=== PATIENT | female | born 1970 | race Caucasian/White ===

== ENCOUNTER 2016-09-09 11:11 | Day surgery (SDC) | payer MEDICAID ==
[~2016-09-09 11:11] MED LIST: Lactated Ringers 1,000 ML IV SCH; ceFAZolin 2 GM in Premix Bag 1 BAG IV ONE
[2016-09-09] MEDS ORDERED: Lidocaine 1% 20 ML MDV ONE (12:09)
[2016-09-09] MEDS ORDERED: Bupivacaine 0.5% 10 ML SDV ONE (12:09)
[2016-09-09] MEDS ORDERED: Lidocaine 2% 5 ML SDV ONE (12:45)
[2016-09-09] MEDS ORDERED: fentaNYL 250 MCG/5 ML SDV ONE (12:45)
[2016-09-09] MEDS ORDERED: Midazolam 1 MG/ML 2 ML SDV ONE (12:45)
[2016-09-09] MEDS ORDERED: Propofol 200 MG/20 ML SDV ONE (12:45)
--- NOTE | 2016-09-09 12:49 | PCM.PREANE ---
Preanesthetic Assessment - Anesthesia/Transfusion/Family Hx Anesthesia History: Prior Anesthesia Without Reaction Other Type of Anesthesia Reaction Comment: Denies any known problems in the past , no known family history of problems Family History of Anesthesia Reaction: No Transfusion History: No Prior Transfusion(s) - Review of Systems General: No Symptoms Pulmonary: No Symptoms Cardiovascular: No Symptoms Gastrointestinal: No symptoms Neurological: No Symptoms Other: Reports: None - Physical Assessment NPO Status Date: 09/08/16 Height: 1.7 m Weight: 106.594 kg ASA Class: 2 Mental Status: Alert & Oriented x3 Airway Class: Mallampati = 2 Dentition: Reports: Normal Dentition ROM/Head Extension: Full Lungs: Clear to auscultation, Normal respiratory effort Cardiovascular: Regular Rate, Regular Rhythm - Lab Values: Laboratory Last Values Urine HCG, Qual NEGATIVE (NEGATIVE) 09/09/16 11:17 - Allergies Allergies/Adverse Reactions: Allergies Allergy/AdvReac Type Severity Reaction Status Date / Time No Known Allergies Allergy Verified 09/07/16 11:27 - Blood Blood Available: No - Anesthesia Plan Pre-Op Medication Ordered: None - Acknowledgements Anesthesia Type Planned: General Anesthesia Pt an Appropriate Candidate for the Planned Anesthesia: Yes Alternatives and Risks of Anesthesia Discussed w Pt/Guardian: Yes Pt/Guardian Understands and Agrees with Anesthesia Plan: Yes PreAnesthesia Questionnaire - Past Health History Medical/Surgical History: Denies Medical/Surgical History [employer] History: Reports: Musculoskeletal History: Reports: Arthritis Psychiatric History: Reports: Anxiety, Depression Endocrine/Metabolic History: Reports: Obesity/BMI 30+ - Past Surgical History Head Surgeries/Procedures: Reports: None Female Surgical History: Reports: section, Tubal ligation Musculoskeletal Surgical History: Reports: Other (see below) Other Musculoskeletal Surgeries/Procedures:: hx rt foot surgery - SUBSTANCE USE Smoking Status *Q: Current Every Day Smoker Tobacco Use Within Last Twelve Months: Cigarettes Second Hand Smoke Exposure: Yes Days Per Week of Alcohol Use: 0 Number of Drinks Per Day: 0 Total Drinks Per Week: 0 Recreational Drug Use History: No - HOME MEDS Home Medications: Home Meds Aspirin [Low Dose Aspirin EC] 1 tab PO DAILY 09/07/16 [History] Calcium Carb & Citrate/Vit D3 [Calcium + D3 ER Tablet] 1 tab PO DAILY 09/07/16 [ History] Vit D3 & K/Berberine HCl/Hops [Ostera] 5,000 units PO DAILY 09/07/16 [History] - CURRENT (IN HOUSE) MEDS Current Meds: Current Medications Lactated Ringer's (Ringers, Lactated) 1,000 mls @ 125 mls/hr IV ASDIRECTED MAN Discontinued Medications Bupivacaine HCl (Sensorcaine-Mpf 0.5%) Confirm Administered Dose 20 ml .ROUTE .STK-MED ONE Stop: 09/09/16 12:10 Cefazolin Sodium/Dextrose 2 gm (/ Premix) 50 mls @ 100 mls/hr IV ONETIME ONE Stop: 09/09/16 11:00 Lidocaine HCl (Xylocaine 1%) Confirm Administered Dose 20 ml .ROUTE .STK-MED ONE Stop: 09/09/16 12:10 Preanesthetic Assessment - ANESTHESIA/TRANSFUSION/FAMILY HX Anesthesia/Transfusion History: No Prior Transfusion(s), Prior Anesthesia (C- section, TL, EGD, foot wart: no anesthesia issues noted) Other Type of Anesthesia Reaction Comment: Denies any known problems in the past , no known family history of problems Family History of Anesthesia Reaction: No Other Intubation History Comment: no known problems - PHYSICAL ASSESSMENT Height: 1.7 m Weight: 106.594 kg - LAB Values: Laboratory Last Values Urine HCG, Qual NEGATIVE (NEGATIVE) 09/09/16 11:17 - ALLERGIES Allergies/Adverse Reactions: Allergies Allergy/AdvReac Type Severity Reaction Status Date / Time No Known Allergies Allergy Verified 09/07/16 11:27
[2016-09-09] MEDS ORDERED: Ketorolac 30 MG/ML SDV ONE (13:13)
[2016-09-09] MEDS ORDERED: Ondansetron 4 MG/2 ML SDV ONE (13:13)
[2016-09-09] MEDS ORDERED: HYDROmorphone 2 MG/ML Syringe ONE (13:13)
[2016-09-09] MEDS ORDERED: fentaNYL 100 MCG/2 ML SDV IVPUSH PRN ×2 (13:56→14:31)
--- NOTE | 2016-09-09 14:38 | PCM.OPNOTE ---
- General Post-Op/Procedure Note Date of Surgery/Procedure: 09/09/16 Operative Procedure(s): excision of plantar warts right foot Findings: consistent with diagnosis Pre Op Diagnosis: plantar warts right foot Post-Op Diagnosis: plantar warts right foot Anesthesia Technique: General LMA Primary Surgeon: Matias Hewitt Anesthesia Provider: Maciel Castillo Pathology: excised wart material with skin and subcutaneous tissue right foot EBL in mLs: 3 Complications: none Condition: Good Free Text/Narrative:: materials: 4-0 vicryl, 3-0 prolene injectables: 10 ml 0.5% marcaine plain
--- NOTE | 2016-09-09 15:01 | PCM.POSTAN ---
POST ANESTHESIA ASSESSMENT - MENTAL STATUS Mental Status: alert, oriented - RESPIRATORY Respiratory Status: respiratory rate WNL, airway patent, O2 saturation stable - CARDIOVASCULAR CV Status: pulse rate WNL, blood pressure stable - GASTROINTESTINAL GI Status: no symptoms - POST OP HYDRATION Hydration Status: adequate & stable
--- NOTE | 2016-09-09 15:11 | PCM.POSTAN ---
POST ANESTHESIA ASSESSMENT - MENTAL STATUS Mental Status: alert, oriented - VITAL SIGNS Pulse Rate: 79 SaO2: 94 Resp Rate: 13 Blood Pressure: 100/53 - RESPIRATORY Respiratory Status: respiratory rate WNL, airway patent, O2 saturation stable, supplemental oxygen Free Text/Narrative:: oxygen saturation mid 90s when awake and talking but 90-91 when resting supplemental nasal oxygen for phase 2 - CARDIOVASCULAR CV Status: pulse rate WNL, blood pressure stable - GASTROINTESTINAL GI Status: no symptoms - PAIN Pain Score: 0 - POST OP HYDRATION Hydration Status: adequate & stable
--- NOTE | 2016-09-09 15:20 | PN ---
Preoperative Progress Note The patient is a 46-year-old female. The patient is here today with a preoperative diagnosis of plantar warts on the left and right foot pain. She initially had been scheduled and consented for surgical excision of the left foot plantar wart; however, today she states that the right foot plantar warts are causing her significantly more pain and so the consent has been redone and the patient is consented for a planned procedure of excision of plantar warts, right foot. The preoperative diagnosis is plantar warts of the right foot as well. The patient has no allergies. She has been cleared for surgery by Dr. Braswell with no contraindications noted to surgery. She has following results from her preoperative history and physical exam, her complete blood count was all within normal values as well as her basic metabolic panel, as well as PT, INR, and PTT. Her urinalysis showed that at the time of the history and physical exam which was August 10, 2016 did show trace results of white blood cells in her urine and she has since been treated with antibiotics and resolved her urinary tract infection. I spoke with Dr. Braswell regarding this and confirmed that she is now clear of infection and ready to proceed with surgery. Chest x-ray showed no acute process. An EKG was showing sinus rhythm. The patient presents today for surgical excision of right foot plantar warts. No guarantees expressed or implied. The patient is being given a prescription for analgesic care and has been provided with my cell phone number, should she need it with any issues. She will be following up in my office next week. RAMA MCFARLANE /[id number]
[2016-09-09] MEDS: Acetaminophen/oxyCODONE 325-5 MG Tab PO PRN (15:56)
[2016-09-09 17:01] VITALS: BP 135/74
--- NOTE | 2016-09-09 17:01 | PCM48HPAN ---
Post Anesthesia Note - EVALUATION WITHIN 48HRS OF ANESTHETIC Vital Signs in Normal Range: Yes Patient Participated in Evaluation: Yes Respiratory Function Stable: Yes Airway Patent: Yes Cardiovascular Function Stable: Yes Hydration Status Stable: Yes Pain Control Satisfactory: Yes Nausea and Vomiting Control Satisfactory: Yes Mental Status Recovered: Yes
--- NOTE | 2016-09-09 23:21 | OR ---
SURGEON: Matias Hewitt DPM DATE OF PROCEDURE: 09/09/2016 PREOPERATIVE DIAGNOSIS: Plantar warts, right foot. POSTOPERATIVE DIAGNOSIS: Plantar warts, right foot. PROCEDURE: Excision of plantar warts, right foot. ANESTHESIA: General. HEMOSTASIS: Above ankle pneumatic tourniquet inflated to a pressure of 250 mmHg after an Esmarch bandage exsanguination. ESTIMATED BLOOD LOSS: 3 mL. MATERIALS: 4-0 Vicryl, 3-0 Prolene suture. INJECTABLES: 10 mL of 0.5% Marcaine plain. PATHOLOGY: Mass of tissue and excised warts were sent to pathology for gross and histologic examination. CONDITION: Patient tolerated the procedure and anesthesia well without any complications noted or reported. JUSTIFICATION FOR PROCEDURE: Mrs. Balderas is a 46-year-old female, who presents to the [facility] sameday surgery [place] operating room for excision of a cluster of plantar warts on the right foot. Patient has stated repeatedly that she has had the warts on the right foot almost her entire life and over 40 years. She also has a large wart on the left foot which originally we had planned to excise today; however, the patient is in greater pain on the right foot and insists that her right foot be done 1st. The plan which was to do the left foot today and after she heals, to bring her back for the right foot that is now being reversed and we were doing the right foot today. Patient is consented properly for right foot excision of plantar warts. Patient was told of the benefits as well as possible side effects of the surgery with the patient consenting for surgical correction by excising the plantar warts. Consent form was reviewed with the patient and all questions answered. No guarantees expressed or implied. The patient signed the patient consent form with a witness present that was placed in the patient's chart. The patient was identified as Ms. Balderas, was brought to the operating room, placed on the operating table in a supine position. At which time, an aseptic scrub and drape was performed about the patient's right lower extremity and the pneumatic tourniquet was applied but not inflated prior to the beginning of the procedure. The procedure then commenced. PROCEDURE IN DETAIL: Excision of plantar wart right foot: Attention was directed to the plantar aspect of the patient's right plantar lateral midfoot where the two large warts with a thick hyperkeratotic layer were identified and a marking pen was used to plan an elliptical incision to completely excise both identified warts areas. This was followed by an Esmarch bandage exsanguination of the right lower extremity and inflation of the right ankle tourniquet above ankle tourniquet to a pressure of 250 mmHg. Using a 15 blade mounted on a #3 blade handle and a 1 to product picker. The elliptical incision was performed completely encompassing the warts in question and a full-thickness cut was made with care being taken to avoid any neurovascular structures. The incision was deepened with undermining of the subcutaneous tissue surrounding the warts and at its deepest incision protruded to the deep tissue, but did not reach the level of tendon. The planned excision was completed and the single piece of skin and subcutaneous and deep tissue that encompassed the plantar warts as well as the warts themselves were removed in one piece and placed in toto in a sterile specimen container and sent to pathology for gross and histologic examination. The exposed area of the foot was then irrigated with copious amounts of normal sterile saline and inspected for any further evidence of wart material and none was found and the excision was judged to be adequate and at this point, using a combination of a #15 and #11 blade, a very thin amount of peripheral skin was then removed in order to allow for optimal closure of the wound. The deeper subcutaneous tissue was reapproximated using 4-0 Vicryl suture and then closely spaced sutures were used with 3-0 Prolene suture to reapproximate the superficial skin. The area was then injected with 10 mL of 0.5% Marcaine plain, covered with Betadine- soaked Xeroform gauze 4 x 4, fluff gauze, Kerlix roll, and Bro bandage. The pneumatic tourniquet was deflated at a time of 33 minutes. Prompt hyperemic response was noted to all digits of the right foot. The patient was then transferred from the operating room to the recovery room having tolerated the procedure and anesthesia well with all vital signs stable. After brief stay in recovery room, the patient is to be discharged home with prescription for adequate analgesic care. In addition, written instructions have been provided regarding wound care, strict nonweightbearing to the right lower extremity, use of crutches, orders to keep the bandages clean, dry, and intact and to follow up with me in my office either on Monday or Monday of next week. Patient also has been provided with my cell phone number in the event that any concerns arise before then. RAMA MCFARLANE /[id number]
== END 2016-09-09 15:50 | disposition home or self-care (01) ==
LOC: MW.SDS 11:11
PROVIDERS: ATTEND Podiatrist Foot & Ankle Surgery
DX: B07.0 Plantar wart (principal); F32.9 Major depressive disorder, single episode, unspecified; F41.9 Anxiety disorder, unspecified; E66.9 Obesity, unspecified; Z98.890 Other specified postprocedural states; Z98.51 Tubal ligation status; Z79.82 Long term (current) use of aspirin; Z79.899 Other long term (current) drug therapy; Z68.30 Body mass index [BMI] 30.0-30.9, adult; F17.210 Nicotine dependence, cigarettes, uncomplicated
CPT/HCPCS: 11426; 12041; 81025; 88305; A9270; J1170; J1885; J2250; J2405; J3010; 00400; J2704

== ENCOUNTER 2016-10-26 09:52 | Day surgery (SDC) | payer MEDICAID ==
[~2016-10-26 09:52] MED LIST changes: -ceFAZolin 2 GM in Premix Bag 1 BAG IV ONE
[2016-10-26] MEDS ORDERED: ceFAZolin 2 GM in Premix Bag 1 BAG IV ONE (10:40)
[2016-10-26] MEDS ORDERED: ceFAZolin 1 GM Vial ONE (11:41)
[2016-10-26] MEDS ORDERED: Lidocaine 1% 20 ML MDV ONE (11:41)
[2016-10-26] MEDS ORDERED: Bupivacaine 0.5% 10 ML SDV ONE (11:41)
--- NOTE | 2016-10-26 11:51 | PCM.PREANE ---
Preanesthetic Assessment - Anesthesia/Transfusion/Family Hx Anesthesia History: Prior Anesthesia Without Reaction Other Type of Anesthesia Reaction Comment: Denies any known problems in the past , no known family history of problems Family History of Anesthesia Reaction: No Transfusion History: No Prior Transfusion(s) Intubation History: Unknown - Review of Systems General: No Symptoms Pulmonary: No Symptoms Cardiovascular: No Symptoms Gastrointestinal: No symptoms Neurological: No Symptoms Other: Reports: None - Physical Assessment Height: 1.7 m Weight: 105.687 kg ASA Class: 5E Emergency Airway Class: Mallampati = 2 Dentition: Reports: Normal Dentition Thyro-Mental Finger Breadths: 3 Mouth Opening Finger Breadths: 3 ROM/Head Extension: Full Lungs: Clear to auscultation, Normal respiratory effort Cardiovascular: Regular Rate, Regular Rhythm - Lab Values: Laboratory Last Values Urine HCG, Qual NEGATIVE (NEGATIVE) 10/26/16 09:58 - Allergies Allergies/Adverse Reactions: Allergies Allergy/AdvReac Type Severity Reaction Status Date / Time No Known Allergies Allergy Verified 09/07/16 11:27 - Blood Blood Available: No - Anesthesia Plan Pre-Op Medication Ordered: None - Acknowledgements Anesthesia Type Planned: MAC Pt an Appropriate Candidate for the Planned Anesthesia: Yes Alternatives and Risks of Anesthesia Discussed w Pt/Guardian: Yes Pt/Guardian Understands and Agrees with Anesthesia Plan: Yes PreAnesthesia Questionnaire - Past Health History Medical/Surgical History: Denies Medical/Surgical History Genitourinary History: Reports: None [employer]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: Musculoskeletal History: Reports: Arthritis Psychiatric History: Reports: Anxiety, Depression Endocrine/Metabolic History: Reports: Obesity/BMI 30+ - Past Surgical History Head Surgeries/Procedures: Reports: None Female Surgical History: Reports: section, Tubal ligation Musculoskeletal Surgical History: Reports: Other (see below) Other Musculoskeletal Surgeries/Procedures:: hx plantar warts removed from rt foot, a little over a month ago - SUBSTANCE USE Smoking Status *Q: Former Smoker Tobacco Use Within Last Twelve Months: Cigarettes Second Hand Smoke Exposure: Yes Days Per Week of Alcohol Use: 0 Number of Drinks Per Day: 0 Total Drinks Per Week: 0 Recreational Drug Use History: No - HOME MEDS Home Medications: Home Meds Aspirin [Low Dose Aspirin EC] 1 tab PO ASDIRECTED 09/07/16 [History] Calcium Carb & Citrate/Vit D3 [Calcium + D3 ER Tablet] 1 tab PO DAILY 09/07/16 [ History] Vit D3 & K/Berberine HCl/Hops [Ostera] 5,000 units PO DAILY 09/07/16 [History] buPROPion [Wellbutrin XL] 150 mg PO DAILY 10/21/16 [History] - CURRENT (IN HOUSE) MEDS Current Meds: Current Medications Lactated Ringer's (Ringers, Lactated) 1,000 mls @ 125 mls/hr IV ASDIRECTED MAN Last Admin: 10/26/16 11:18 Dose: 125 mls/hr Discontinued Medications Bupivacaine HCl (Sensorcaine-Mpf 0.5%) Confirm Administered Dose 20 ml .ROUTE .STK-MED ONE Stop: 10/26/16 11:42 Cefazolin Sodium (Ancef) Confirm Administered Dose 1 gm .ROUTE .STK-MED ONE Stop: 10/26/16 11:42 Cefazolin Sodium/Dextrose 2 gm (/ Premix) 50 mls @ 100 mls/hr IV ONETIME ONE Stop: 10/26/16 11:09 Lidocaine HCl (Xylocaine 1%) Confirm Administered Dose 20 ml .ROUTE .STK-MED ONE Stop: 10/26/16 11:42
[2016-10-26] MEDS ORDERED: fentaNYL 100 MCG/2 ML SDV IVPUSH PRN (13:27)
[2016-10-26] MEDS ORDERED: Ketorolac 30 MG/ML SDV ONE (13:45)
[2016-10-26] MEDS ORDERED: Ondansetron 4 MG/2 ML SDV ONE (13:45)
[2016-10-26] MEDS ORDERED: Acetaminophen/HYDROcodone 325-10 MG Tab PO PRN (14:16)
--- NOTE | 2016-10-26 14:23 | PCM.OPNOTE ---
- General Post-Op/Procedure Note Date of Surgery/Procedure: 10/26/16 Operative Procedure(s): excision of plantar wart left foot Findings: consistent with diagnosis Pre Op Diagnosis: plantar wart left foot Post-Op Diagnosis: plantar wart left foot Anesthesia Technique: General LMA, Local Other Anesthesia Type: 8 cc 1:1 mixture of 1% lidocaine plain and 0.5% marcaine plain Primary Surgeon: Matias Hewitt Pathology: excised left plantar wart EBL in mLs: 3 Condition: Good Free Text/Narrative:: materials: 2-0 prolene and 3-0 prolene injectables: 5 ml 0.5% marcaine plain
--- NOTE | 2016-10-26 14:32 | PN ---
Preoperative Progress Note PREOPERATIVE DIAGNOSIS: Plantar warts, left foot. POSTOPERATIVE DIAGNOSIS: Plantar warts, left foot. PLANNED PROCEDURE: Excision of plantar warts, left foot. CONSENT: Signed and in the chart. ANESTHESIA: LMA with a preoperative local block consisting of a mixture of 1% lidocaine plain and 0.5% Marcaine plain in a 50 50 ratio. The patient confirms n.p.o. since midnight. History and physical was completed by Dr. Braswell with no contraindications to surgery. PAST MEDICAL HISTORY: Significant for no allergies. CURRENT MEDICATIONS: Vira aspirin p.o. daily, calcium vitamin D p.o. daily, vitamin D3 5000 international units oral capsule one capsule p.o. daily, Wellbutrin XL 150 mg extended release one tab daily. MEDICAL CONDITIONS: The patient is an everyday smoker, who has avoided smoking over the last week in preparation for surgery. Mood disorder. Prior excision of plantar wart from the right foot. Denies alcohol use. Denies substance abuse. LABORATORY DATA: The EKG was done prior to the last surgery on August 10, 2016 showed sinus rhythm. The chest x-ray was performed on August 10 as well and that was unremarkable. Labs are as follows from October 07, white blood cell 8.16, red blood cell 4.45, hemoglobin 14.7, hematocrit 42.6, platelets 275. From August 10, 2016, PT was 9.4, INR 0.9, and PTT 23 seconds. The labs continue from October 07, 2016, glucose 89, calcium 8.8, BUN 14, creatinine 0.96. Sodium 142, potassium 4.0, chloride 106, CO2 of 25. Urinalysis was unremarkable. The patient presents for excision of plantar wart on left foot surgery today. No contraindications to surgery noted. No guarantees given or implied. The patient is healing well from her excision of plantar wart on the right foot approximately 1 to 1-1/2 months ago. RAMA / DENYS /[id number] MTDD
[2016-10-26 15:27] VITALS: BP 132/78
--- NOTE | 2016-10-27 02:05 | OR ---
SURGEON: Matias Hewitt DPM DATE OF PROCEDURE: 10/26/2016 PREOPERATIVE DIAGNOSIS: Plantar warts, left foot. POSTOPERATIVE DIAGNOSIS: Plantar warts, left foot. PROCEDURE: Excision of plantar wart, left foot. ANESTHESIA: General with LMA and a local block consisting of 8 mL of a one-to-one mixture of 0.5% Marcaine plain and 1% lidocaine plain. HEMOSTASIS: An above ankle pneumatic tourniquet inflated to a pressure of 250 mmHg after an Esmarch bandage exsanguination . ESTIMATED BLOOD LOSS: 3 mL. MATERIALS: 3-0 Prolene and 2-0 Prolene. INJECTABLES: 5 mL of 0.5% Marcaine plain. PATHOLOGY: The skin and soft tissue, containing the excised wart was sent to pathology for gross and histologic examination. Condition. The patient tolerated the procedure and the anesthesia well with no complications noted or recorded. COMPLICATIONS: None. JUSTIFICATION FOR PROCEDURE: The patient is a 46-year-old female, who [facility] for excision of a large plantar wart or warts on the left foot. The patient underwent a similar procedure approximately 1.5 months ago and had an excellent outcome and has elected to undergo the procedure on the left foot where she has what appears to be a larger wart area, but essentially on the same plantar lateral midfoot area, actually on the plantar foot, but the lateral side of the plantar foot. Unlike the wart on the right foot, which she stated she had for over 40 years, this wart was apparently only arisen within the last year or two and conservative treatments have failed to address this wart as they did the wart on the right foot. Patient presents for surgical correction today and confirms n.p.o. since midnight and has been presented and signed the consent form for excision of the of plantar wart on the left foot. The patient was told the benefits as well as possible side effects of surgery prior to consent. No guarantees expressed or implied. All the patient's questions were answered. Patient identified as Ms. Balderas and was brought to the operating room, placed on the operating table in a supine position. At which time, an aseptic scrub and drape was performed about the patient's left lower extremity. The incision site was then planned and following that, planned with a marking pen, the left lower extremity was exsanguinated with an Esmarch bandage and the pneumatic tourniquet fixed about the left ankle was inflated to a pressure of 250 mmHg and the procedure commenced. PROCEDURE IN DETAIL: Excision of plantar wart, left foot. Attention was directed to the plantar aspect of the patient's left foot and the wart on the lateral side of the plantar foot in the midfoot area was excised by following the previously marked route with a marking pen and at this time the wart was excised with sharp incision using a 15 blade and undermining the wart as necessary. This was done with an elliptical incision to allow closure, as the wart was approximately 1.5 cm in diameter. The skin and soft tissue, containing the wart was excised in toto. With care being taken to avoid any neurovascular structures and was removed and placed in a sterile specimen container and sent to pathology for gross and histologic examination. The area was then reinspected, a small amount of tissue that may have been associated with the wart was then debrided sharply and removed as well from the area. The entire area was then re-examined and flushed with copious amounts of normal sterile saline in preparation for closure. The remaining skin surrounding the excision site was then undermined in all directions to allow the skin to sustain the significantly increased amount of tension necessary to achieve closure and the widest part, which was the middle of the incision was then reapproximated using 2-0 Prolene suture for the skin. Due to the nature of the excision, deeper suturing was avoided in this case and once the initial suturing was completed using 2-0 Prolene suture for the mid section area, 3-0 Prolene suture was utilized to close the rest of the incision, also a #11 blade was used to excise a very thin amount of peripheral skin at the edges of the excision site in both proximal and distal locations to allow for optimal closure of the site. Following closure, the site was injected with 5 mL of 0.5% Marcaine plain, it was then covered with Betadine - soaked Xeroform gauze followed by 4 x 4, fluff gauze, Kerlix roll, and Bro bandage. The pneumatic tourniquet was deflated at a time of 38 or 39 minutes and there was a prompt hyperemic response noted to all digits of the left foot. The patient was then transferred from the operating room to recovery room having tolerated the procedure and the anesthesia well with all vital signs stable. After brief stay in recovery room, patient is to be discharged home with prescription for adequate analgesic care. In addition, patient will be provided with written and verbal instructions, and has been told that the instructions are identical to her prior surgery. It was addressed the need to keep the dressings clean, dry, and intact. Strict nonweightbearing to the left lower extremity. Use of crutches which the patient has from the prior case and contact information in order to follow up with me in my office on Monday next week. The patient has been provided with my cell phone number in the event of any concerns arise at any time. RAMA MCFARLANE /[id number] MTDD
== END 2016-10-26 15:21 | disposition home or self-care (01) ==
LOC: MW.SDS 09:52
PROVIDERS: ATTEND Podiatrist Foot & Ankle Surgery
PROC: 0HBNXZZ Excision of Left Foot Skin, External Approach (ICD-10-PCS; principal; 2016-10-26)
DX: B07.0 Plantar wart (principal); M19.90 Unspecified osteoarthritis, unspecified site; F32.9 Major depressive disorder, single episode, unspecified; E66.9 Obesity, unspecified; Z87.891 Personal history of nicotine dependence; Z79.82 Long term (current) use of aspirin; Z79.899 Other long term (current) drug therapy; Z98.51 Tubal ligation status; Z98.890 Other specified postprocedural states; Z68.37 Body mass index [BMI] 37.0-37.9, adult
CPT/HCPCS: 11422; 12041; 81025; J1885; J2405; J7120; 00400; 88305; J0690

== ENCOUNTER 2017-07-10 11:51 | Emergency (ER) | payer MEDICAID, OTHER ==
--- NOTE | 2017-07-10 12:38 | EDM.PDOC ---
ED HPI GENERAL MEDICAL PROBLEM - General Chief Complaint: Upper Extremity Injury/Pain Stated Complaint: PAIN IN BOTH HANDS WORK RELATED Time Seen by Provider: 07/10/17 12:30 Source of Information: Reports: Patient History Limitations: Reports: No Limitations - History of Present Illness INITIAL COMMENTS - FREE TEXT/NARRATIVE: HISTORY AND PHYSICAL: History of present illness: [Patient comes to the emergency room complaining of pain to her fingers on both hands. States that she suffered frostbite on June 25 as she was working outside in extreme cold temperatures. She has continued to experience pain to all of her fingers except thumbs since this occurred. She admits to smoking regularly for all of her adult life. She has not taken any medications for her symptoms. Denies numbness and tingling. No other injuries. PCP is Dr. Braswell.] Review of systems: As per history of present illness and below otherwise all systems reviewed and negative. Past medical history: As per history of present illness and as reviewed below otherwise noncontributory. Surgical history: As per history of present illness and as reviewed below otherwise noncontributory. Social history: No reported history of drug or alcohol abuse. Family history: As per history of present illness and as reviewed below otherwise noncontributory. Physical exam: HEENT: Atraumatic, normocephalic. Extremities: Fingers are warm dry pink and intact. No cyanosis or swelling appreciated Refill less than 2 seconds. Neurovascular unremarkable. Neuro: Awake, alert, oriented.Motor and sensory unremarkable throughout. Exam nonfocal. Impression: [Bilateral finger pain] Plan: [Recommend that she take Tylenol alternating with ibuprofen as needed for discomfort. Quit smoking. Always wear gloves to avoid reinjury. Follow-up with PCP. Strict return precautions are reviewed with patient. She is in agreement with today's plan all of her questions are answered and concerns are addressed.] Definitive disposition and diagnosis as appropriate pending reevaluation and review of above. 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: Musculoskeletal History: Reports: Arthritis Psychiatric History: Reports: Anxiety, Depression Endocrine/Metabolic History: Reports: Obesity/BMI 30+ - Past Surgical History Head Surgeries/Procedures: Reports: None Female Surgical History: Reports: Section, Tubal Ligation Musculoskeletal Surgical History: Reports: Other (See Below) Other Musculoskeletal Surgeries/Procedures:: plantars warts removed from bilateral feet Social & Family History - Family History Family Medical History: Noncontributory - Tobacco Use Smoking Status *Q: Current Every Day Smoker Years of Tobacco use: 20 Packs/Tins Daily: 0.5 Used Tobacco, but Quit: Yes Month Tobacco Last Used: pt states she quit smoking 1 week ago, prior to that she smoked 1/2 pk/day Second Hand Smoke Exposure: Yes - Caffeine Use Caffeine Use: Reports: Coffee, Soda, Tea - Alcohol Use Days Per Week of Alcohol Use: 0 Number of Drinks Per Day: 0 Total Drinks Per Week: 0 - Recreational Drug Use Recreational Drug Use: No Drug Use in Last 12 Months: No Review of Systems - Review of Systems Review Of Systems: ROS reveals no pertinent complaints other than HPI. ED EXAM, GENERAL - Physical Exam Exam: See Below Course - Vital Signs Last Recorded V/S: Last Vital Signs Temp 97.6 F 07/10/17 12:55 Pulse 77 07/10/17 12:55 Resp 18 07/10/17 12:55 BP 120/74 07/10/17 12:55 Pulse Ox 96 07/10/17 12:55 Departure - Departure Time of Disposition: 12:40 Disposition: Home, Self-Care 01 Condition: Good Clinical Impression: Pain in finger of both hands - Discharge Information Instructions: Frostbite, [id number] Referrals: Deedee Braswell DO [Primary Care Provider] - Forms: ED Department Discharge Additional Instructions: The following information is given to patients seen in the emergency department who are being discharged to home. This information is to outline your options for follow-up care. We provide all patients seen in our emergency department with a follow-up referral. The need for follow-up, as well as the timing and circumstances, are variable depending upon the specifics of your emergency department visit. If you don't have a primary care physician on staff, we will provide you with a referral. We always advise you to contact your personal physician following an emergency department visit to inform them of the circumstance of the visit and for follow-up with them and/or the need for any referrals to a consulting specialist. The emergency department will also refer you to a specialist when appropriate. This referral assures that you have the opportunity for follow-up care with a specialist. All of these measure are taken in an effort to provide you with optimal care, which includes your follow-up. Under all circumstances we always encourage you to contact your private physician who remains a resource for coordinating your care. When calling for follow-up care, please make the office aware that this follow-up is from your recent emergency room visit. If for any reason you are refused follow-up, please contact the [facility] emergency department at and asked to speak to the emergency department charge nurse. [address] [address] Follow-up with your primary care provider or at the clinic listed above in 48- 72 hours. Take Tylenol 1-2 tablets every 4-6 hours as needed for discomfort. He can alternate this medication with ibuprofen 200 mg 3 tablets every 6 hours. Keep your fingers warm and dry. Return to ER as needed as discussed.
[2017-07-10 12:56] VITALS: BP 120/74
== END 2017-07-10 12:56 | disposition home or self-care (01) ==
LOC: MW.ED 11:51
DX: M79.645 Pain in left finger(s) (principal); M79.644 Pain in right finger(s); F17.210 Nicotine dependence, cigarettes, uncomplicated; Z79.82 Long term (current) use of aspirin
CPT/HCPCS: 99282

== ENCOUNTER 2020-09-25 07:41 | Day surgery (SDC) | payer MEDICAID, OTHER ==
[~2020-09-25 07:41] MED LIST changes: +ceFAZolin 2 GM in Premix Bag 1 BAG IV ONE
--- NOTE | 2020-09-25 08:08 | PCM.PREANE ---
Preanesthetic Assessment - Anesthesia/Transfusion/Family Hx Anesthesia History: Prior Anesthesia Without Reaction Other Type of Anesthesia Reaction Comment: Denies any known problems in the past, no known family history of problems Family History of Anesthesia Reaction: No Transfusion History: No Prior Transfusion(s) Intubation History: Unknown - Review of Systems General: No Symptoms Pulmonary: No Symptoms Cardiovascular: No Symptoms Gastrointestinal: No Symptoms Neurological: No Symptoms Other: Reports: None - Physical Assessment NPO Status Date: 09/25/20 NPO Status Time: 00:05 Vital Signs: Last Vital Signs Temp 97.2 F 09/25/20 07:58 Pulse 95 09/25/20 07:58 Resp 16 09/25/20 07:58 BP 131/93 H 09/25/20 07:58 Pulse Ox 96 09/25/20 07:58 Height: 5 ft 7 in Weight: 240 lb ASA Class: 2 Mental Status: Alert & Oriented x3 Dentition: Reports: Normal Dentition ROM/Head Extension: Full Lungs: Clear to Auscultation, Normal Respiratory Effort Cardiovascular: Regular Rate, Regular Rhythm - Allergies Allergies/Adverse Reactions: Allergies Allergy/AdvReac Type Severity Reaction Status Date / Time No Known Allergies Allergy Verified 09/25/20 08:04 - Anesthesia Plan Pre-Op Medication Ordered: None - Acknowledgements Anesthesia Type Planned: General Anesthesia Pt an Appropriate Candidate for the Planned Anesthesia: Yes Alternatives and Risks of Anesthesia Discussed w Pt/Guardian: Yes Pt/Guardian Understands and Agrees with Anesthesia Plan: Yes Additional Comments: npo after mn tob daily smoker etoh none for 12 years hx abuse no cv problems par no questions obesity PreAnesthesia Questionnaire - Past Health History Medical/Surgical History: Denies Medical/Surgical History HEENT History: Reports: None Cardiovascular History: Reports: None Respiratory History: Reports: None Gastrointestinal History: Reports: Other (See Below) Other Gastrointestinal History: intermittent RUQ pain Genitourinary History: Reports: None 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: Musculoskeletal History: Reports: None, Arthritis Neurological History: Reports: None Psychiatric History: Reports: Anxiety Endocrine/Metabolic History: Reports: Obesity/BMI 30+ Hematologic History: Reports: None Immunologic History: Reports: None Oncologic (Cancer) History: Reports: None Dermatologic History: Reports: None - Past Surgical History Head Surgeries/Procedures: Reports: None HEENT Surgical History: Reports: None Cardiovascular Surgical History: Reports: None Respiratory Surgical History: Reports: None GI Surgical History: Reports: None Female Surgical History: Reports: Section, Tubal Ligation Endocrine Surgical History: Reports: None Neurological Surgical History: Reports: None Musculoskeletal Surgical History: Reports: Other (See Below) Other Musculoskeletal Surgeries/Procedures:: plantars warts removed from bilateral feet Oncologic Surgical History: Reports: None Dermatological Surgical History: Reports: None - SUBSTANCE USE Tobacco Use Status *Q: Current Every Day Tobacco User Tobacco Use Within Last Twelve Months: Cigarettes - HOME MEDS Home Medications: Home Meds Aspirin [Low Dose Aspirin EC] 81 mg PO DAILY 09/07/16 [History] Cholecalciferol (Vitamin D3) [Vitamin D3] 5,000 units PO DAILY 09/14/20 [History] Phentermine HCl 37.5 mg PO DAILY 09/14/20 [History] - CURRENT (IN HOUSE) MEDS Current Meds: Current Medications Lactated Ringer's (Ringers, Lactated) 1,000 mls @ 125 mls/hr IV ASDIRECTED [facility] Last Admin: 09/25/20 08:03 Dose: 125 mls/hr Documented by: Discontinued Medications Cefazolin Sodium/Dextrose 2 gm (/ Premix) 50 mls @ 100 mls/hr IV ONETIME ONE Stop: 09/25/20 05:29
[2020-09-25] MEDS ORDERED: Midazolam 1 MG/ML 2 ML SDV ONE (08:57)
[2020-09-25] MEDS ORDERED: Propofol 200 MG/20 ML SDV ONE ×2 (08:57→10:42)
[2020-09-25] MEDS ORDERED: Ondansetron 4 MG/2 ML SDV ONE (08:57)
[2020-09-25] MEDS ORDERED: fentaNYL 100 MCG/2 ML SDV ONE (08:57)
[2020-09-25] MEDS ORDERED: Glycopyrrolate 0.2 MG/ML SDV ONE (08:58)
[2020-09-25] MEDS ORDERED: Ketorolac 30 MG/ML SDV ONE (08:58)
[2020-09-25] MEDS ORDERED: Rocuronium Bromide 50 MG/5 ML Syringe ONE (08:58)
[2020-09-25] MEDS ORDERED: Dexamethasone 4 MG/ML 5 ML MDV ONE (08:58)
[2020-09-25] MEDS ORDERED: Morphine 10 MG/ML Syringe ONE (08:58)
[2020-09-25] MEDS ORDERED: Sugammadex Sodium 200 MG/2 ML VIAL ONE (09:03)
[2020-09-25] MEDS ORDERED: Sodium Chloride 0.9% 20 ML ONE (09:04)
[2020-09-25] MEDS ORDERED: ceFAZolin 1 GM Vial ONE (09:04)
[2020-09-25] MEDS ORDERED: Bupivacaine 25%/EPINEPHrine/PF 30 ML ONE (09:05)
[2020-09-25] MEDS ORDERED: Lidocaine 2% 5 ML SDV ONE (09:39)
[2020-09-25] MEDS ORDERED: Morphine 10 MG/ML Syringe IVPUSH ONE (10:23)
[2020-09-25] MEDS ORDERED: Octyl 2-Cyanoacrylate 1 Tube ONE (10:34)
--- NOTE | 2020-09-25 11:21 | PCM.OPNOTE ---
- General Post-Op/Procedure Note Date of Surgery/Procedure: 09/25/20 Operative Procedure(s): lap mai Findings: gb distended and wall yellow and green, wall is not thickened; large gs 3cm; [id number] Pre Op Diagnosis: acute and chronic cholecystitis Post-Op Diagnosis: Same Anesthesia Technique: General ET Tube Primary Surgeon: Inocente Palacios Pathology: sent Drain/Tube Comments:: surgicell inserted for hemostasis Complications: None Condition: Good
--- NOTE | 2020-09-25 12:59 | PCM.POSTAN ---
POST ANESTHESIA ASSESSMENT - MENTAL STATUS Mental Status: Alert, Oriented - VITAL SIGNS Vital Signs: Last Vital Signs Temp 97.5 F 09/25/20 12:20 Pulse 76 09/25/20 12:50 Resp 14 09/25/20 12:50 BP 124/70 09/25/20 12:50 Pulse Ox 94 L 09/25/20 12:50 - RESPIRATORY Respiratory Status: Respiratory Rate WNL, Airway Patent, O2 Saturation Stable - CARDIOVASCULAR CV Status: Pulse Rate WNL, Blood Pressure Stable - GASTROINTESTINAL GI Status: No Symptoms - POST OP HYDRATION Hydration Status: Adequate & Stable
[2020-09-25 13:08] VITALS: BP 112/55; PULSE 88
--- NOTE | 2020-09-25 13:44 | PCM48HPAN ---
Post Anesthesia Note - EVALUATION WITHIN 48HRS OF ANESTHETIC Vital Signs in Normal Range: Yes Patient Participated in Evaluation: Yes Respiratory Function Stable: Yes Airway Patent: Yes Cardiovascular Function Stable: Yes Hydration Status Stable: Yes Pain Control Satisfactory: Yes Nausea and Vomiting Control Satisfactory: Yes Mental Status Recovered: Yes Vital Signs: Last Vital Signs Temp 97.5 F 09/25/20 12:20 Pulse 88 09/25/20 13:05 Resp 14 09/25/20 13:05 BP 112/55 L 09/25/20 13:05 Pulse Ox 94 L 09/25/20 13:05
--- NOTE | 2020-09-25 18:34 | OR ---
SURGEON: Inocente Palacios MD DATE OF PROCEDURE: 09/25/2020 PREOPERATIVE DIAGNOSIS: Acute on chronic cholecystitis. POSTOPERATIVE DIAGNOSIS: Acute on chronic cholecystitis. PRIMARY SURGEON: Inocente Palacios MD COMPLICATIONS: None. FINDING: Gallbladder was distended and yellow and green consistent with chronicity. Wall is not thickened. One large gallstone about the size of 3 cm. A piece of Surgicel was inserted for hemostasis. PROCEDURE PROPOSED: Laparoscopic cholecystectomy. PROCEDURE PERFORMED: Laparoscopic cholecystectomy. PROCEDURE NOTE: The patient was taken to the operating room and placed in the supine position. After the intubation of general endotracheal anesthesia, the patient's abdomen was prepped and draped in the usual sterile fashion. Using Optiview, a 12 mm trocar was placed supraumbilically and then followed with pneumoperitoneum. A 5 mm trocar was placed in the epigastrium and two 5 mm trocars placed in the right upper quadrant. The placement of the last three trocars was done under direct video supervision. Upon gaining entrance to the abdominal cavity, an extensive examination was then performed. The gallbladder was located and identified and retracted to the dome of the liver at the triangle of Calot. The cystic duct was clipped three more times and then using the endoscopic clip, was transected with placement of the endoscopic clip and transection was performed with care, ensuring the posterior prong of the instruments were clearly visualized prior to exercising the procedure. The gallbladder was dissected using electrocautery out of the liver bed and then removed using endoscopic bag through the umbilical site. The gallbladder was removed en bloc and there was no bile spillage and this was then followed with extensive irrigation until the bile was clear from blood and bile. The trocars were then removed under direct video supervision. The 12 mm umbilical site was then closed with deep stitches using 0 Vicryl followed with proximal stitches using 3-0 Vicryl and Dermabond. The other three trocar sites were closed with 3-0 Vicryl followed with approximation of skin with Dermabond. The patient was then awakened and extubated and transferred to the recovery room in hemodynamically stable condition. At the conclusion of the surgery, before closing the abdominal wound, instrument count and sponge count were done and were correct. The patient tolerated the procedure well and there were no intraoperative complications. Dr. Palacios was present through the whole procedure. Just before surgery, a timeout was called. The patient was identified and procedure identified and procedure started. INTRAOPERATIVE FINDINGS: As dictated above. LINDA / DENYS /[id number]
== END 2020-09-25 13:24 | disposition home or self-care (01) ==
LOC: MW.SDS 07:41
PROVIDERS: ATTEND Surgery
DX: K80.12 Calculus of gallbladder with acute and chronic cholecystitis without obstruction (principal); K57.90 Diverticulosis of intestine, part unspecified, without perforation or abscess without bleeding; K43.2 Incisional hernia without obstruction or gangrene; E66.9 Obesity, unspecified; F17.210 Nicotine dependence, cigarettes, uncomplicated; Z79.82 Long term (current) use of aspirin; Z79.899 Other long term (current) drug therapy; Z98.890 Other specified postprocedural states; Z68.38 Body mass index [BMI] 38.0-38.9, adult
CPT/HCPCS: 47562; 81025; A9270; J0131; J0690; J1100; J1885; J2250; J2270; J2405; J2704; J3010; J3490; J7120; 88304

== ENCOUNTER 2020-12-09 07:42 | Day surgery (SDC) | payer MEDICAID ==
[~2020-12-09 07:42] MED LIST changes: +Lidocaine 2% 5 ML SDV ONE; +Ondansetron 4 MG/2 ML SDV ONE; -ceFAZolin 2 GM in Premix Bag 1 BAG IV ONE; +fentaNYL 100 MCG/2 ML SDV ONE
[2020-12-09] MEDS ORDERED: Albuterol 0.083% 2.5 MG/3 ML Neb Soln NEB PRN (08:19)
[2020-12-09] MEDS ORDERED: Ondansetron 4 MG/2 ML SDV IVPUSH PRN (08:19)
--- NOTE | 2020-12-09 08:19 | PCM.PREANE ---
Preanesthetic Assessment - Anesthesia/Transfusion/Family Hx Anesthesia History: Prior Anesthesia Without Reaction Other Type of Anesthesia Reaction Comment: Denies any known problems in the past, no known family history of problems Family History of Anesthesia Reaction: No Transfusion History: No Prior Transfusion(s) Intubation History: Unknown - Review of Systems General: No Symptoms Pulmonary: No Symptoms Cardiovascular: No Symptoms Gastrointestinal: No Symptoms Neurological: No Symptoms Other: Reports: None - Physical Assessment NPO Status Date: 12/09/20 NPO Status Time: 00:00 Vital Signs: Last Vital Signs Temp 98.1 F 12/09/20 07:56 Pulse 55 L 12/09/20 07:56 Resp 15 12/09/20 07:56 BP 114/80 12/09/20 07:56 Pulse Ox 96 12/09/20 07:56 Height: 5 ft 7 in Weight: 244 lb ASA Class: 2 Mental Status: Alert & Oriented x3 Dentition: Reports: Normal Dentition Thyro-Mental Finger Breadths: 4 Mouth Opening Finger Breadths: 4 ROM/Head Extension: Full Lungs: Clear to Auscultation, Normal Respiratory Effort Cardiovascular: Regular Rate, Regular Rhythm - Allergies Allergies/Adverse Reactions: Allergies Allergy/AdvReac Type Severity Reaction Status Date / Time adhesive tape Allergy Blisters Verified 12/03/20 14:51 - Blood Blood Available: No - Acknowledgements Anesthesia Type Planned: General Anesthesia Pt an Appropriate Candidate for the Planned Anesthesia: Yes Alternatives and Risks of Anesthesia Discussed w Pt/Guardian: Yes Pt/Guardian Understands and Agrees with Anesthesia Plan: Yes PreAnesthesia Questionnaire - Past Health History Medical/Surgical History: Denies Medical/Surgical History HEENT History: Reports: None Cardiovascular History: Reports: None Respiratory History: Reports: None Gastrointestinal History: Reports: None Genitourinary History: Reports: None 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: Reports: Fracture Other Musculoskeletal History: fx toes Neurological History: Reports: None Psychiatric History: Reports: Anxiety Endocrine/Metabolic History: Reports: Obesity/BMI 30+ Hematologic History: Reports: None Immunologic History: Reports: None Oncologic (Cancer) History: Reports: None Dermatologic History: Reports: None - Past Surgical History Head Surgeries/Procedures: Reports: None HEENT Surgical History: Reports: None Cardiovascular Surgical History: Reports: None Respiratory Surgical History: Reports: None GI Surgical History: Reports: Cholecystectomy Female Surgical History: Reports: Section, Tubal Ligation Endocrine Surgical History: Reports: None Neurological Surgical History: Reports: None Musculoskeletal Surgical History: Reports: Other (See Below) Other Musculoskeletal Surgeries/Procedures:: plantar warts removed from bilateral feet Oncologic Surgical History: Reports: None Dermatological Surgical History: Reports: None - SUBSTANCE USE Tobacco Use Status *Q: Current Every Day Tobacco User Tobacco Use Within Last Twelve Months: Cigarettes - HOME MEDS Home Medications: Home Meds Aspirin [Low Dose Aspirin EC] 81 mg PO DAILY 09/07/16 [History] Cholecalciferol (Vitamin D3) [Vitamin D3] 5,000 units PO DAILY 09/14/20 [History] Phentermine HCl 37.5 mg PO DAILY 09/14/20 [History] - CURRENT (IN HOUSE) MEDS Current Meds: Current Medications Lactated Ringer's (Ringers, Lactated) 1,000 mls @ 125 mls/hr IV ASDIRECTED [facility] Last Admin: 12/09/20 08:14 Dose: 125 mls/hr Documented by: Discontinued Medications Fentanyl (Fentanyl 100 Mcg/2 Ml Sdv) Confirm Administered Dose 100 mcg .ROUTE .STK-MED ONE Stop: 12/09/20 07:19 Lidocaine (Lidocaine 2% 5 Ml Sdv) Confirm Administered Dose 5 ml .ROUTE .STK-MED ONE Stop: 12/09/20 07:19 Ondansetron HCl (Ondansetron 4 Mg/2 Ml Sdv) Confirm Administered Dose 4 mg .ROUTE .STK-MED ONE Stop: 12/09/20 07:18
[2020-12-09] MEDS ORDERED: Propofol 200 MG/20 ML SDV ONE (08:32)
--- NOTE | 2020-12-09 09:36 | PCM.OPNOTE ---
- General Post-Op/Procedure Note Date of Surgery/Procedure: 12/09/20 Operative Procedure(s): colonoscopy w bx Findings: see [id number] Pre Op Diagnosis: colitis and abd pain Post-Op Diagnosis: Same Anesthesia Technique: Moderate Sedation Primary Surgeon: Inocente Palacios Pathology: at 15cm 3 mm sessile polyp Complications: None Condition: Good
[2020-12-09 09:59] VITALS: BP 113/73; PULSE 78
--- NOTE | 2020-12-09 16:02 | OR ---
SURGEON: Inocente Palacios MD DATE OF PROCEDURE: 12/09/2020 PREOPERATIVE DIAGNOSIS: Colitis and abdominal pain. POSTOPERATIVE DIAGNOSIS: Diverticulosis and polyp. PROCEDURE PERFORMED: Colonoscopy with biopsy. DESCRIPTION OF PROCEDURE: The patient was taken to the endoscopy room. A time out was called, patient identified, and procedure identified. Diprivan was then administrated. Patient went from awake to sleep, hearing doctor talking or door closing is normal. Perineum inspection and digital examination were then performed. A well- lubricated colonoscope was gently inserted through the rectum, advanced past the rectosigmoid junction, the descending colon, splenic flexure, transverse colon, hepatic flexure, ascending colon, arrived to the cecum. Cecum was identified as dictated in the finding. Then the scope was carefully withdrawn while attention was paid to the mucosal surface for any abnormality. Air will be sucked out during the scope withdrawal. At the rectum, retroflexed to examine any rectal diseases, fistula or hemorrhoids. During mucosal examination, abnormality or polyp was noted; picture taken and biopsy performed. Patient tolerated procedure well. There were no intraoperative complications, and Dr. Palacios was present throughout the whole procedure. FINDINGS: 1. The patient is easily sedated with AVIATION MEDICINE SPECIALIST and Diprivan. The patient is soundly snoring. 2. Bowel prep is average to above average, very little liquid stool. 3. Colon is rather straightforward. Cecum indicated by ileocecal fold, one-to- one indentation, appendiceal orifice, and is ScopeGuide is pointing south. Mucosa examined upon scope pulling out. The patient has very mild diverticulosis on the left colon, nothing on the transverse or the right colon. No signs or symptoms of diverticulitis. The patient has a very small polyp at distance 15 cm when the scope go in. A 3 mm sessile polyp, removed with cold biopsy forceps. Other than that, no other growth, mass, inflammation, stricture, AV malformation, bleeding, ulcer; none of those. The patient has some mild internal hemorrhoids and mild external hemorrhoids. Of note, she has some skin lesion about 4 x 3 cm at the right labia majora. We will have to check with the patient how long she has this lesion. The patient would benefit from repeat colonoscopy in 10 years from today or if other factors or clinically indicated otherwise. LINDA / DENYS /[id number]
== END 2020-12-09 10:15 | disposition home or self-care (01) ==
LOC: MW.SDS 07:42
PROVIDERS: ATTEND Surgery
DX: K63.5 Polyp of colon (principal); K57.30 Diverticulosis of large intestine without perforation or abscess without bleeding; K52.9 Noninfective gastroenteritis and colitis, unspecified; K64.8 Other hemorrhoids; K64.4 Residual hemorrhoidal skin tags; F17.210 Nicotine dependence, cigarettes, uncomplicated; E66.9 Obesity, unspecified; Z68.38 Body mass index [BMI] 38.0-38.9, adult; Z79.82 Long term (current) use of aspirin; Z90.49 Acquired absence of other specified parts of digestive tract; Z98.890 Other specified postprocedural states
CPT/HCPCS: 45380; J2704; J3010; J7120; 00812; 88305; J2405

== ENCOUNTER 2021-10-17 15:34 | Emergency (ER) | payer MEDICAID | END 2021-10-17 20:00 | disposition left against medical advice (07) | LOC: MW.ED 15:34 | DX: Z53.21 Procedure and treatment not carried out due to patient leaving prior to being seen by health care provider (principal) ==

== ENCOUNTER 2021-10-19 12:37 | Emergency (ER) | payer MEDICAID ==
[2021-10-19] MEDS ORDERED: Sodium Chloride 0.9% 2.5 ML Syringe FLUSH PRN (12:59)
[2021-10-19] MEDS ORDERED: Sodium Chloride 0.9% 1,000 ML IV ONE (12:59)
[2021-10-19] MEDS ORDERED: Sodium Chloride 0.9% 10 ML Syringe FLUSH PRN (12:59)
[2021-10-19] MEDS ORDERED: fentaNYL 50 MCG/ML SDV IVPUSH ONE (12:59)
[2021-10-19] MEDS ORDERED: Ondansetron 4 MG/2 ML SDV IVPUSH ONE (12:59)
[2021-10-19 13:41] LABS: CARBON DIOXIDE,CO2 28.3 mmol/L (21.0-32.0); POTASSIUM,K 4.1 mmol/L (3.5-5.1)
[2021-10-19] MEDS ORDERED: Amoxicillin/Clavulanate K 875-125 MG Tab PO ONE (14:10)
[2021-10-19 15:52] VITALS: BP 119/79; PULSE 71
== END 2021-10-19 15:16 | disposition home or self-care (01) ==
LOC: MW.ED 12:37
DX: K57.92 Diverticulitis of intestine, part unspecified, without perforation or abscess without bleeding (principal); F17.210 Nicotine dependence, cigarettes, uncomplicated; E66.9 Obesity, unspecified; Z68.36 Body mass index [BMI] 36.0-36.9, adult; Z90.49 Acquired absence of other specified parts of digestive tract; Z79.82 Long term (current) use of aspirin; Z79.899 Other long term (current) drug therapy
CPT/HCPCS: 36415; 74176; 80053; 81001; 83690; 84703; 85025; 96374; 96375; 99284; A9270; J2405; J3010; J3490; J7030; 99283

== ENCOUNTER 2023-03-13 14:58 | Emergency (ER) | payer MEDICAID ==
[2023-03-13 15:48] VITALS: BP 146/85; PULSE 103
== END 2023-03-13 15:46 | disposition home or self-care (01) ==
LOC: MW.ED 14:58
DX: L03.116 Cellulitis of left lower limb (principal); E66.9 Obesity, unspecified; Z68.34 Body mass index [BMI] 34.0-34.9, adult; Z91.048 Other nonmedicinal substance allergy status
CPT/HCPCS: 99283

== ENCOUNTER 2025-05-31 21:29 | Emergency (ER) | payer SELFPAY ==
[2025-05-31 22:00] LABS: APPEARANCE,URINE CLEAR; GLUCOSE,URINE NEGATIVE (NEGATIVE); OCCULT BLOOD,URINE TRACE-INTACT (NEGATIVE)
[2025-05-31] MEDS ORDERED: Sodium Chloride 0.9% 2.5 ML Syringe FLUSH PRN (22:05)
[2025-05-31] MEDS ORDERED: Sodium Chloride 0.9% 10 ML Syringe FLUSH PRN (22:05)
[2025-05-31] MEDS: Ketorolac 30 MG/ML SDV IVPUSH ONE (22:18)
[2025-05-31 22:19] LABS: MEAN PLATELET VOLUME 10.2 fL (9.4-12.3); NRBC ABSOLUTE 0.00 K/uL (0.00-0.02); NRBC PERCENT 0.0 /100WBC (0.0-0.2); PLATELET COUNT,PLT 258 K/uL (150-400); RED BLOOD CELL COUNT 4.27 M/uL (4.10-5.30); WHITE BLOOD CELL COUNT,WBC 15.27 K/uL (3.9-11.3)
[2025-05-31 22:22] LABS: EPITHELIAL CELLS,URINE MODERATE (NONE-FEW)
[2025-05-31 22:41] LABS: A/G RATIO 1.0 (0.9-1.6); ALANINE AMINOTRANSFERASE,ALT 61.0 IU/L (14-63); ASPARTATE AMNIOTRANSFERASE,AST 29.0 IU/L (15-37); BILIRUBIN TOTAL 1.2 mg/dL (0.2-1.0); BLOOD UREA NITROGEN,BUN 13.0 mg/dL (7.0-18.0); CARBON DIOXIDE,CO2 29.9 mmol/L (21.0-32.0); CHLORIDE,CL 100.0 mmol/L (98-107); CREATININE 1.0 mg/dL (0.6-1.0); EST CRCL DRUG DOSING (CG) 61.09 mL/min; GLUCOSE RANDOM 121.0 mg/dL (74-106); POTASSIUM,K 4.1 mmol/L (3.5-5.1); PROTEIN TOTAL,TP 7.0 g/dL (6.4-8.2); SODIUM,NA 136.0 mmol/L (136-145)
[2025-05-31 22:47] LABS: ESTIMATED GFR 66.0 mL/min (>60)
[2025-05-31 22:49] LABS: BASOPHILS ABSOLUTE MAN 0.00 K/uL (0.00-0.20); BASOPHILS PERCENT MAN 0 % (0-1); EOSINOPHILS ABSOLUTE MAN 0.00 K/uL (0.00-0.45); EOSINOPHILS PERCENT MAN 0 % (0-6); LYMPHOCYTES ABSOLUTE MAN 4.12 K/uL (1.00-4.80); LYMPHOCYTES PERCENT MAN 27 % (24-44); MONOCYTES ABSOLUTE MAN 1.53 K/uL (0.00-0.80); MONOCYTES PERCENT MAN 10 % (0-8); SEG NEUTROPHILS ABSOLUTE MAN 9.62 K/uL (1.80-7.70); SEG NEUTROPHILS PERCENT MAN 63 % (41-71)
[2025-05-31] MEDS: Iopamidol 755 MG/ML 500 ML Multipack Bottle IVPUSH STA (22:52)
[2025-05-31 23:21] VITALS: BP 125/76; PULSE 78
== END 2025-05-31 23:56 | disposition home or self-care (01) ==
LOC: MW.ED 21:29
DX: K57.32 Diverticulitis of large intestine without perforation or abscess without bleeding (principal); D35.02 Benign neoplasm of left adrenal gland; F17.200 Nicotine dependence, unspecified, uncomplicated; Z91.048 Other nonmedicinal substance allergy status
CPT/HCPCS: 36415; 74177; 80053; 81001; 85025; 96374; 99284; J1885; J7030; Q9967; 99283